=== PATIENT | male | born 2000 | race Caucasian/White ===

== ENCOUNTER 2022-06-26 17:19 | Observation (INO) ==
[2022-06-26] MEDS ORDERED: SODIUM CHLORIDE 0.9% 1000ML 1,000 ML IV STA (17:35)
--- NOTE | 2022-06-26 17:35 | ED Triage Note ---
Date of Service June 26, 2022 History of Present Illness This patient was briefly evaluated while in triage. An abbreviated physical exam was performed. This patient is a 21-year-old Male with no significant past medical history who presents to the ED for evaluation of abdominal discomfort that started last night. Awoke this morning, discomfort intensified and associated with nausea and "sharp pains everywhere." I was walking to the store and I was having sharp pains on my right side and my lower right side. Pt. called [facility] and referred for rule out of appendicitis. Physical Exam VITALS: Vitals are noted on the nurse's note and reviewed by myself. GENERAL: This is a 21 year old male, in no acute distress, nondiaphoretic, well- developed well-nourished. SKIN: No obvious rashes, edema, erythema HEAD: Normocephalic atraumatic. EYES: Conjunctivae without injection, sclerae without icterus. NECK: No JVD. LUNGS: No retractions or accessory muscle use. MUSCULOSKELETAL: Normal gait. NEURO: Patient was alert and oriented to person place and time. No focal neurological deficits. Initial orders for labs and / or imaging were placed and patient was placed in the waiting area until a bed is available. Please see further documentation for the full ED course. MDM / Impression Impression Impression: Acute appendicitis : Acute appendicitis Qualifiers: Acute appendicitis type: with localized peritonitis Appendicitis gangrene presence: without gangrene Appendicitis perforation presence: without perforation Appendicitis abscess presence: without abscess Qualified Code(s): K35.30 - Acute appendicitis with localized peritonitis, without perforation or gangrene
[2022-06-26 19:05] LABS: Basophils # (auto) 0.06 K/uL (0-0.2); Basophils % (auto) 0.4 %; Eosinophils % (auto) 0.7 %; Hematocrit (blood only) 44.6 % (40.1-51.0); Hemoglobin 15.7 g/dl (14.0-18.0); Immature Granulocytes # (auto) 0.05 K/uL (0.00-0.02); Immature Granulocytes % (auto) 0.3 %; Lymphocytes # (auto) 2.18 K/uL (1.2-3.4); Mean Corpuscular Hemoglobin 28.5 pg (25.0-34.0); Mean Corpuscular Hgb Conc 35.2 g/dL (32.0-36.0); Mean Corpuscular Volume 80.9 fL (80.0-100.0); Mean Platelet Volume 9.6 fL (9.4-12.4); Monocytes # (auto) 0.89 K/uL (0.24-0.82); Monocytes % (auto) 6.1 %; Neutrophils # (auto) 11.22 K/uL (1.4-6.5); Neutrophils % (auto) 77.5 %; Platelet Count 327 K/uL (130-400); RDW Coefficient of Variation 12.1 % (11.5-14.5); RDW Standard Deviation 35.8 fL (36.4-46.3); Red Blood Count 5.51 M/uL (4.63-6.08)
[2022-06-26 19:24] LABS: Alanine Aminotransferase 12 U/L (7-52); Albumin Globulin Ratio 2.2 (0.9-2); Albumin Level 4.9 gm/dl (3.4-5.0); Alkaline Phosphatase 67 U/L (34-104); Anion Gap 6 (3-11); Aspartate Aminotransferase 12 U/L (13-39); BUN Creatinine Ratio 14.9 (10-20); Bilirubin,Total 1.9 mg/dl (0.2-1.0); Blood Urea Nitrogen 11 mg/dl (6-23); Calcium 10.2 mg/dl (8.5-10.1); Carbon Dioxide 29 mmol/L (21-32); Chloride 103 mmol/L (98-107); Creatinine Clr Calc Pharmacy 155.3 ml/min; Est GFR (African American) > 150.0 ml/min; Est GFR (Non-African American) 133.7 ml/min; Globulin 2.2 gm/dl (2.5-4.0); Glucose 112 mg/dl (70-99(Fasting)); Lipase 18 U/L (11-82); Potassium 3.9 mmol/L (3.5-5.1); Sodium 138 mmol/L (136-145); Total Protein 7.1 gm/dl (6.0-8.3)
--- NOTE | 2022-06-26 19:51 | Emergency Department Note ---
Impression & Plan Acute appendicitis ED Provider Note NAME: ANJEL HALL AGE: 21 SEX: M : 2000 ARRIVES VIA: Walk-In INFORMANT: Patient, ED PROVIDER(S): Tian Rowan MD Chief Complaint: Abdominal pain HPI: Patient presents due to concern for abdominal pain. The patient states that he initially had some discomfort last evening but did not think much of it. The patient states that he woke this morning he did have some right upper and right lower abdominal pain. Patient thought that he would go to the local store and get some tea but did not take anything else for it. The patient states that his pain does feel improved compared to prior. The patient does have his appendix. Patient denies any dysuria or hematuria. No chest pains or shortness of breath. The patient did have some nausea earlier today but no vomiting. No current nausea. Patient denies any alcohol tobacco or drug use. The patient had called his mother suggested he call S and upon doing so [facility] [place] referred him here for further evaluation and treatment for rule out of appendicitis. ROS: See HPI for pertinent positives and negatives. A total of 10 systems were reviewed and otherwise negative. Past medical history: See below Surgical history: See below Social history: See below Physical Exam: GENERAL: NAD, wearing a mask, non-toxic. EYE EXAM: Normal conjunctiva. PERRL, no anisocoria and EOM's grossly intact w/o pain. NECK: Supple, no nuchal rigidity, no adenopathy, non-tender. No signs of meningismus. FROM of the neck with good chin to chest and neck extension. No stridor. LUNGS: Clear to auscultation. Normal chest wall mechanics. HEART: NSR, no MRG. ABDOMEN: Abdomen soft, non-tender, normo-active bowel sounds, no masses, no rebound or guarding. BACK: No CVA TTP. SKIN: No rashes and no bruising. UPPER EXTREMITIES: Upper extremities are grossly normal. LOWER EXTREMITIES: Grossly normal, no edema. NEURO EXAM: A&O x3, cranial nerves II-XII grossly intact, normal speech, moves all 4 extremities. Differential diagnoses: Appendicitis, testicular torsion, infections, diverticulitis, UTI, obstruction, mesenteric ischemia, aortic pathology, inflammatory bowel disease, renal colic, PUD, pancreatitis, biliary pathology, hernia, volvulus, constipation, as well as other pathologies. Course: Patient was seen and evaluated the bedside. Full history physical exam was performed. Imaging Studies: CT abdomen pelvis with IV and oral contrast Acute appendicitis Cardiac monitoring: An order was placed for continuous cardiac monitoring. The monitor shows a rate of 92 with sinus rhythm. MDM: Patient presents due to concern for abdominal pain. Blood work was obtained along with a CT of the abdomen pelvis. The patient currently denies any pain on exam at the bedside. She does have a white count of 14 with a normal H&H. Platelet count is unremarkable. Kidney function unremarkable. Mild elevation in bilirubin at 1.9. The patient has no right upper quadrant pain. Patient did receive IV fluids. Lipase is normal. Urinalysis without signs of blood or infection. CT abdomen pelvis does show concern for acute appendicitis. Cefoxitin was ordered in addition to COVID swab. I did speak the on-call g eneral surgeon Dr. Gautam and the patient was taken to the OR. Past Med/Surg History Medical History No pertinent past medical history Surgical History No pertinent past surgical history Social History Smoking Status: Never smoker Preferred Language: Chinese Feels Safe at Home: Yes Results & Data (ED) Vital Signs Vital Signs - 24 hr 06/26/22 17:34 06/26/22 19:43 06/26/22 19:43 Temperature 37.6 C H Temperature Source Oral Pulse Rate 117 H 94 H Pulse Rate [Finger] 86 Respiratory Rate 16 20 Respiratory Effort / Characteristics Respiratory Depth Blood Pressure 130/82 Blood Pressure [Left Arm] 129/78 Blood Pressure Mean 98 Blood Pressure Mean [Left Arm] 95 Blood Pressure Position [Left Arm] Pulse Oximetry 98 99 99 Oxygen Delivery Method Room Air Room Air Sepsis Recent Fever Within 48 Hours No Sepsis New/Unexplained Change in Mental Status N/A Sepsis Action Taken by Nursing No Action Required 06/26/22 21:14 06/26/22 23:09 Temperature Temperature Source Pulse Rate Pulse Rate [Finger] 77 96 H Respiratory Rate 18 20 Respiratory Effort / Characteristics Non-Labored Spontaneous Respiratory Depth Normal Blood Pressure Blood Pressure [Left Arm] 125/84 Blood Pressure Mean Blood Pressure Mean [Left Arm] 97 Blood Pressure Position [Left Arm] Sitting Pulse Oximetry 98 99 Oxygen Delivery Method Room Air Room Air Sepsis Recent Fever Within 48 Hours Sepsis New/Unexplained Change in Mental Status Sepsis Action Taken by Assisted Medications Current Medication List: was personally reviewed by me Laboratory Data Attestation: I reviewed the patient's lab results. Result diagrams: 06/26/22 18:38 06/26/22 18:38 Lab Results 06/26/22 06/26/22 06/26/22 Range/Units 18:38 18:38 20:59 WBC 14.50 H (4.8-10.8) K/ul RBC 5.51 (4.63-6.08) M/uL Hgb 15.7 (14.0-18.0) g/dl Hct 44.6 (40.1-51.0) % MCV 80.9 (80.0-100.0) fL MCH 28.5 (25.0-34.0) pg MCHC 35.2 (32.0-36.0) g/dL RDW Std Deviation 35.8 L (36.4-46.3) fL RDW Coeff of Raymond 12.1 (11.5-14.5) % Plt Count 327 (130-400) K/uL MPV 9.6 (9.4-12.4) fL Immature Gran % (Auto) 0.3 % Neut % (Auto) 77.5 % Lymph % (Auto) 15.0 % Terrell % (Auto) 6.1 % Eos % (Auto) 0.7 % Baso % (Auto) 0.4 % Neut # (Auto) 11.22 H (1.4-6.5) K/uL Lymph # (Auto) 2.18 (1.2-3.4) K/uL [place]rell # (Auto) 0.89 H (0.24-0.82) K/uL Eos # (Auto) 0.10 (0-0.50) K/uL Baso # (Auto) 0.06 (0-0.2) K/uL Immature Gran # (Auto) 0.05 H (0.00-0.02) K/uL Sodium 138 (136-145) mmol/L Potassium 3.9 (3.5-5.1) mmol/L Chloride 103 (98-107) mmol/L Carbon Dioxide 29 (21-32) mmol/L Anion Gap 6 (3-11) BUN 11 (6-23) mg/dl Creatinine 0.74 (0.6-1.4) mg/dl Est Cr Clr Drug Dosing 155.3 ml/min Est GFR ( Amer) > 150.0 ml/min Est GFR (Non-Af Amer) 133.7 ml/min BUN/Creatinine Ratio 14.9 (10-20) Glucose 112 H (70-99(Fasting)) mg/dl Calcium 10.2 H (8.5-10.1) mg/dl Total Bilirubin 1.9 H (0.2-1.0) mg/dl AST 12 L (13-39) U/L ALT 12 (7-52) U/L Alkaline Phosphatase 67 (34-104) U/L Total Protein 7.1 (6.0-8.3) gm/dl Albumin 4.9 (3.4-5.0) gm/dl Globulin 2.2 L (2.5-4.0) gm/dl Albumin/Globulin Ratio 2.2 H (0.9-2) Lipase 18 (11-82) U/L Urine Color Yellow Urine Appearance Clear (Clear) Urine pH 7.0 (4.5-7.5) Ur Specific [place] 1.006 (1.000-1.030) Urine Protein Negative (Negative) Urine Glucose (UA) Negative (Negative) Urine Ketones Negative (Negative) Urine Blood Negative (Negative) Urine Nitrite Negative (Negative) Urine Bilirubin Negative (Negative) Urine Urobilinogen Negative (Negative) Ur Leukocyte Esterase Negative (Negative) SARS-CoV-2, RNA, NAAT (NEGATIVE) 06/26/22 Range/Units 23:05 WBC (4.8-10.8) K/ul RBC (4.63-6.08) M/uL Hgb (14.0-18.0) g/dl Hct (40.1-51.0) % MCV (80.0-100.0) fL MCH (25.0-34.0) pg MCHC (32.0-36.0) g/dL RDW Std Deviation (36.4-46.3) fL RDW Coeff of Raymond (11.5-14.5) % Plt Count (130-400) K/uL MPV (9.4-12.4) fL Immature Gran % (Auto) % Neut % (Auto) % Lymph % (Auto) % Terrell % (Auto) % Eos % (Auto) % Baso % (Auto) % Neut # (Auto) (1.4-6.5) K/uL Lymph # (Auto) (1.2-3.4) K/uL [place] # (Auto) (0.24-0.82) K/uL Eos # (Auto) (0-0.50) K/uL Baso # (Auto) (0-0.2) K/uL Immature Gran # (Auto) (0.00-0.02) K/uL Sodium (136-145) mmol/L Potassium (3.5-5.1) mmol/L Chloride (98-107) mmol/L Carbon Dioxide (21-32) mmol/L Anion Gap (3-11) BUN (6-23) mg/dl Creatinine (0.6-1.4) mg/dl Est Cr Clr Drug Dosing ml/min Est GFR ( Amer) ml/min Est GFR (Non-Af Amer) ml/min BUN/Creatinine Ratio (10-20) Glucose (70-99(Fasting)) mg/dl Calcium (8.5-10.1) mg/dl Total Bilirubin (0.2-1.0) mg/dl AST (13-39) U/L ALT (7-52) U/L Alkaline Phosphatase (34-104) U/L Total Protein (6.0-8.3) gm/dl Albumin (3.4-5.0) gm/dl Globulin (2.5-4.0) gm/dl Albumin/Globulin Ratio (0.9-2) Lipase (11-82) U/L Urine Color Urine Appearance (Clear) Urine pH (4.5-7.5) Ur Specific [place] (1.000-1.030) Urine Protein (Negative) Urine Glucose (UA) (Negative) Urine Ketones (Negative) Urine Blood (Negative) Urine Nitrite (Negative) Urine Bilirubin (Negative) Urine Urobilinogen (Negative) Ur Leukocyte Esterase (Negative) SARS-CoV-2, RNA, NAAT NEGATIVE (NEGATIVE) Administered Medications Discontinued Medications Sodium Chloride (Nss 1000ml) 1,000 mls @ 999 mls/hr IV .Q1H1M STA Stop: 06/26/22 18:35 Last Infusion: 06/26/22 21:15 Dose: 0 mls/hr Documented By: JUAN DIEGO Admin: 06/26/22 19:41 Dose: 999 mls/hr Documented By: JUAN DIEGO Cefoxitin Sodium (Mefoxin) 2,000 mg in 60 mls @ 100 mls/hr IV NOW STA Stop: 06/26/22 23:31 Last Infusion: 06/26/22 23:42 Dose: 0 mls/hr Documented By: JUAN DIEGO Admin: 06/26/22 23:08 Dose: 100 mls/hr Documented By: JUAN DIEGO Ioversol (Optiray 350 100ml) 84 ml IV ONCE ONE Stop: 06/26/22 21:51 Last Admin: 06/26/22 21:50 Dose: 84 ml Documented By: REY Discharge Plan Visit Data Chief Complaint: GI Assessment Stated Complaint: APPENDICITIS,ABDOMINAL PAIN, SHARP PAINS RIB ED Provider: Tian Rowan Discharge Problem: Acute appendicitis Forms Stand Alone Forms: [facility] Referrals Referrals: PCP,NO [Physician] -
[2022-06-26 21:24] LABS: Appearance Urine Clear (Clear); Bilirubin Urine Negative (Negative); Blood Urine Negative (Negative); Color Urine Yellow; Glucose Urine UA Negative (Negative); Ketones Urine Negative (Negative); Leukocyte Esterase Urine Negative (Negative); Nitrite Urine Negative (Negative); Protein Urine Negative (Negative); Specific Gravity Urine 1.006 (1.000-1.030); Urobilinogen Urine Negative (Negative)
[2022-06-26] MEDS ORDERED: OPTIRAY 350 100ml IV ONE (21:50)
[2022-06-26] MEDS ORDERED: cefOXitin 2,000 MG/60 ML BAG IV STA (22:56)
--- NOTE | 2022-06-27 00:18 | History & Physical Report ---
Date of Service June 27, 2022 Assessment & Plan (1) Acute appendicitis: Plan 21-year-old gentleman presents with acute appendicitis. He was receiving cefoxitin in the emergency department. I discussed with him the risks and benefits of a laparoscopic appendectomy. We discussed the postoperative recovery and restrictions. All his questions were answered, he is agreeable to proceed. We will take him to the operating room at the earliest convenience for laparoscopic appendectomy. History of Present Illness Primary Care Provider: [facility] 21-year-old gentleman presents to the emergency department after a 1 day history of 21-year-old gentleman presents to the emergency department with a 1 day history of diffuse abdominal pain that is localized down to the right lower quadrant. He denies nausea and vomiting. He denies chest pain or shortness of breath. Denies fevers or chills. CT scan demonstrates acute appendicitis with appendicolith. White blood cell count is 14. Past Med/Surg History Medical History No pertinent past medical history Surgical History No pertinent past surgical history Social History Smoking Status: Never smoker Preferred Language: Scottish Feels Safe at Home: Yes Review of Systems Review of Systems: All systems reviewed & are unremarkable except as noted in HPI & below Physical Exam Constitutional: WD/WN, vitals as above Eyes: PERRL, conjunctivae normal, anicteric sclerae Neck: trachea midline, no thyromegaly Respiratory: normal respiratory effort; no respiratory distress and no labored breathing Cardiovascular: Rate/Rhythm: regular rate and regular rhythm Gastrointestinal (Abdomen): Inspection/Auscultation: abdomen normal to inspection; abdomen not distended Percussion/Palpation: abdomen soft; abdomen nontender, no guarding and abdomen not rigid Musculoskeletal: Extremities: no cyanosis and no clubbing Skin: no rashes, warm and dry Psychiatric: A+Ox3, euthymic affect Results & Data Results & Data ([facility]) Vital Signs (Past 12 Hours) Vital Signs Temp Pulse Pulse Resp BP BP Pulse Ox 06/26/22 23:09 96 H 20 125/84 99 06/26/22 21:14 77 18 98 06/26/22 19:43 94 H 99 06/26/22 19:43 86 20 129/78 99 06/26/22 17:34 37.6 C H 117 H 16 130/82 98 O2 Del Method 06/26/22 23:09 Room Air 06/26/22 21:14 Room Air 06/26/22 19:43 Room Air 06/26/22 19:43 06/26/22 17:34 Room Air Laboratory Results 06/26/22 06/26/22 06/26/22 Range/Units 23:05 20:59 18:38 WBC (4.8-10.8) K/ul RBC (4.63-6.08) M/uL Hgb (14.0-18.0) g/dl Hct (40.1-51.0) % MCV (80.0-100.0) fL MCH (25.0-34.0) pg MCHC (32.0-36.0) g/dL RDW Std Deviation (36.4-46.3) fL RDW Coeff of Raymond (11.5-14.5) % Plt Count (130-400) K/uL MPV (9.4-12.4) fL Immature Gran % (Auto) % Neut % (Auto) % Lymph % (Auto) % [place] % (Auto) % Eos % (Auto) % Baso % (Auto) % Neut # (Auto) (1.4-6.5) K/uL Lymph # (Auto) (1.2-3.4) K/uL [place] # (Auto) (0.24-0.82) K/uL Eos # (Auto) (0-0.50) K/uL Baso # (Auto) (0-0.2) K/uL Immature Gran # (Auto) (0.00-0.02) K/uL Sodium 138 (136-145) mmol/L Potassium 3.9 (3.5-5.1) mmol/L Chloride 103 (98-107) mmol/L Carbon Dioxide 29 (21-32) mmol/L Anion Gap 6 (3-11) BUN 11 (6-23) mg/dl Creatinine 0.74 (0.6-1.4) mg/dl Est Cr Clr Drug Dosing 155.3 ml/min Est GFR ( Amer) > 150.0 ml/min Est GFR (Non-Af Amer) 133.7 ml/min BUN/Creatinine Ratio 14.9 (10-20) Glucose 112 H (70-99(Fasting)) mg/dl Calcium 10.2 H (8.5-10.1) mg/dl Total Bilirubin 1.9 H (0.2-1.0) mg/dl AST 12 L (13-39) U/L ALT 12 (7-52) U/L Alkaline Phosphatase 67 (34-104) U/L Total Protein 7.1 (6.0-8.3) gm/dl Albumin 4.9 (3.4-5.0) gm/dl Globulin 2.2 L (2.5-4.0) gm/dl Albumin/Globulin Ratio 2.2 H (0.9-2) Lipase 18 (11-82) U/L Urine Color Yellow Urine Appearance Clear (Clear) Urine pH 7.0 (4.5-7.5) Ur Specific [place] 1.006 (1.000-1.030) Urine Protein Negative (Negative) Urine Glucose (UA) Negative (Negative) Urine Ketones Negative (Negative) Urine Blood Negative (Negative) Urine Nitrite Negative (Negative) Urine Bilirubin Negative (Negative) Urine Urobilinogen Negative (Negative) Ur Leukocyte Esterase Negative (Negative) SARS-CoV-2, RNA, NAAT NEGATIVE (NEGATIVE) 06/26/22 Range/Units 18:38 WBC 14.50 H (4.8-10.8) K/ul RBC 5.51 (4.63-6.08) M/uL Hgb 15.7 (14.0-18.0) g/dl Hct 44.6 (40.1-51.0) % MCV 80.9 (80.0-100.0) fL MCH 28.5 (25.0-34.0) pg MCHC 35.2 (32.0-36.0) g/dL RDW Std Deviation 35.8 L (36.4-46.3) fL RDW Coeff of Raymond 12.1 (11.5-14.5) % Plt Count 327 (130-400) K/uL MPV 9.6 (9.4-12.4) fL Immature Gran % (Auto) 0.3 % Neut % (Auto) 77.5 % Lymph % (Auto) 15.0 % Dick[place] % (Auto) 6.1 % Eos % (Auto) 0.7 % Baso % (Auto) 0.4 % Neut # (Auto) 11.22 H (1.4-6.5) K/uL Lymph # (Auto) 2.18 (1.2-3.4) K/uL [place] # (Auto) 0.89 H (0.24-0.82) K/uL Eos # (Auto) 0.10 (0-0.50) K/uL Baso # (Auto) 0.06 (0-0.2) K/uL Immature Gran # (Auto) 0.05 H (0.00-0.02) K/uL Sodium (136-145) mmol/L Potassium (3.5-5.1) mmol/L Chloride (98-107) mmol/L Carbon Dioxide (21-32) mmol/L Anion Gap (3-11) BUN (6-23) mg/dl Creatinine (0.6-1.4) mg/dl Est Cr Clr Drug Dosing ml/min Est GFR ( Amer) ml/min Est GFR (Non-Af Amer) ml/min BUN/Creatinine Ratio (10-20) Glucose (70-99(Fasting)) mg/dl Calcium (8.5-10.1) mg/dl Total Bilirubin (0.2-1.0) mg/dl AST (13-39) U/L ALT (7-52) U/L Alkaline Phosphatase (34-104) U/L Total Protein (6.0-8.3) gm/dl Albumin (3.4-5.0) gm/dl Globulin (2.5-4.0) gm/dl Albumin/Globulin Ratio (0.9-2) Lipase (11-82) U/L Urine Color Urine Appearance (Clear) Urine pH (4.5-7.5) Ur Specific [place] (1.000-1.030) Urine Protein (Negative) Urine Glucose (UA) (Negative) Urine Ketones (Negative) Urine Blood (Negative) Urine Nitrite (Negative) Urine Bilirubin (Negative) Urine Urobilinogen (Negative) Ur Leukocyte Esterase (Negative) SARS-CoV-2, RNA, NAAT (NEGATIVE) (1) Acute appendicitis Acute appendicitis type: with localized peritonitis Appendicitis abscess presence: without abscess Appendicitis gangrene presence: without gangrene Appendicitis perforation presence: without perforation Qualified Code(s): K35.30 - Acute appendicitis with localized peritonitis, without perforation or gangrene
--- NOTE | 2022-06-27 00:46 | Anesthesiology Consultation ---
Date of Service June 27, 2022 Assessment & Plan (1) Encounter for pre-operative examination: Chart Review Chart Review: Acceptable Risk for Surgery and Patient NOT seen in Pre Admission Testing Consults Requested none History Surgery Operation Date: 06/27/22 01:00 Proposed Procedures p Laparoscopic Appendectomy - Kd Gautam MD Height/Weight Height: 5 ft 8 in Weight: 78.1 kg Past Medical History Medical History No pertinent past medical history Past Surgical History Surgical History No pertinent past surgical history Social History Smoking Status: Never smoker Physical Exam Vital Signs Last Vital Signs Temp 37.6 C H 06/26/22 17:34 Pulse 96 H 06/26/22 23:09 Resp 20 06/26/22 23:09 BP 125/84 06/26/22 23:09 Pulse Ox 99 06/26/22 23:09 O2 Del Method 06/26/22 23:09 Testing Laboratory Results 06/26/22 18:38 06/26/22 18:38 Urine Color Yellow 06/26/22 20:59 Urine Appearance Clear (Clear) 06/26/22 20:59 Urine pH 7.0 (4.5-7.5) 06/26/22 20:59 Ur Specific [place] 1.006 (1.000-1.030) 06/26/22 20:59 Urine Protein Negative (Negative) 06/26/22 20:59 Urine Glucose (UA) Negative (Negative) 06/26/22 20:59 Urine Ketones Negative (Negative) 06/26/22 20:59 Urine Nitrite Negative (Negative) 06/26/22 20:59 Ur Leukocyte Esterase Negative (Negative) 06/26/22 20:59
[2022-06-27] MEDS ORDERED: HYDROmorphone INJ 1 MG/ML SYRINGE IV PRN (00:50)
[2022-06-27] MEDS ORDERED: LABETALOL HCL IV 5 MG/ML 20ML IV PRN (00:50)
[2022-06-27] MEDS ORDERED: PHENYLEPHRINE 100MCG/ML 5ML SYR IV PRN (00:50)
[2022-06-27] MEDS ORDERED: MEPERIDINE HCL 25 MG/ML CARP/VIAL IV PRN (00:50)
[2022-06-27] MEDS ORDERED: fentaNYL citrate 100 MCG/2 ML VIAL IV PRN (00:50)
[2022-06-27] MEDS ORDERED: ePHEDrine sulfate 50 MG/ML AMP IV PRN (00:50)
[2022-06-27] MEDS ORDERED: ONDANSETRON INJ 2 MG/ML 2 ML VIAL IV PRN ×2 (00:50→03:05)
[2022-06-27] MEDS ORDERED: ATROPINE SULFATE 0.1 MG/ML 10ML SYR IV PRN (00:50)
[2022-06-27] MEDS ORDERED: MIDAZOLAM HCL 1 MG/ML 2ML VIAL ONE (00:52)
[2022-06-27] MEDS ORDERED: fentaNYL citrate 100 MCG/2 ML VIAL ONE ×2 (00:52→01:31)
[2022-06-27] MEDS ORDERED: DEXAMETHASONE SOD INJ 4 MG/ML VIAL ONE (00:57)
[2022-06-27] MEDS ORDERED: PROPOFOL IV EMULSION 10 MG/ML 20 ML VIAL IV ONE (00:57)
[2022-06-27] MEDS ORDERED: ONDANSETRON INJ 2 MG/ML 2 ML VIAL ONE (00:57)
[2022-06-27] MEDS ORDERED: SUCCINYLCHOLINE 100MG/5ML SYR IV ONE (00:57)
[2022-06-27] MEDS ORDERED: LIDOCAINE 2% MPF LOCAL 5 ML VIAL INFIL ONE (00:57)
[2022-06-27] MEDS ORDERED: BUPIVACAINE/EPINEPHRINE 0.25% 1:200,000 30 ML VIAL ONE (01:16)
[2022-06-27] MEDS ORDERED: ESMOLOL HCL INJ 10 MG/ML 10ML VIAL IV ONE (01:20)
[2022-06-27] MEDS ORDERED: KETOROLAC 30 MG/ML VIAL ONE (01:43)
[2022-06-27] MEDS ORDERED: NEOSTIGMINE METHYLSULFATE 1 MG/ML 10ML VIAL ONE (01:43)
[2022-06-27] MEDS ORDERED: GLYCOPYRROLATE 0.2 MG/ML VIAL ONE (01:43)
--- NOTE | 2022-06-27 01:57 | Operative Report ---
Post Operative Report Pre & Post Diagnosis Operation Date: 06/27/22 01:00 Pre-Op Diagnosis: Acute Appendicitis Post-Op Diagnosis: Acute Appendicitis I identified the patient and participated in the time-out.: Yes Procedure Operation Date: 06/27/22 01:00 Actual Procedures p Laparoscopic Appendectomy - Kd Gautam MD Surgeon Kd Gautam MD Physical Chemistry Teacher None Estimated Blood Loss 5 Findings Consistent with Post-Op Diagnosis Acute appendicitis Specimens Appendix Drains None Anesthesia Type General Complications No immediate complications Description of Procedure The patient was taken to the operating room, and placed supine on the operating table. A timeout was performed, perioperative antibiotics were administered, SCD boots were placed. After adequate anesthesia and analgesia was obtained, the abdomen was prepped and draped in the normal sterile fashion. A 1 cm incision was made in the supraumbilical region and carried down to the level of the fascia. A trach hook was used to grasp the fascia and elevated and a varies needle was used to enter the abdominal cavity. The abdomen was insufflated to a pressure of 15 mmHg, and a 5 mm trocar was placed in this loc ation. A 5 mm 30 degree laparoscope was placed into the abdominal cavity, and the abdomen was surveyed. The patient was placed in Trendelenburg and slightly to the left. One 5 mm trocar was placed in the right upper quadrant, and one 12 mm trocar was placed in the left lower quadrant under direct visualization. The right colon was identified and traced down to the cecum. The appendix was identified and elevated anteriorly and medially. A window was created at the base of the appendix with a [place] dissector. The Endo FRANCOIS stapler was used to transect the appendix at its base through no ninflamed tissue, and subsequently the mesoappendix. The appendix was placed in an Endo Catch bag, and removed via the left lower quadrant port site. Attention was turned to hemostasis, which was excellent. The abdomen was copiously irrigated and suctioned free, and again hemostasis was found to be excellent. All trochars removed under direct visualization. The abdomen was desufflated. The fascia in the 12 mm port site was closed with a 0 Vicryl suture. The skin was closed with a running 4-0 Monocryl subcuticular stitch. Dermabond was applied. The patient tolerated the procedure without complication, and was transferred in stable condition to the PACU. All instrument, needle, and sponge counts were correct at the end of the case. I attest to the content of the Intraoperative Record and any orders documented therein. Any exceptions are noted below.
--- NOTE | 2022-06-27 02:20 | Anesthesiology Progress Note ---
Date of Service June 27, 2022 Anesthesia Post Procedure Vital Signs Vital Signs: Temp Pulse Pulse Resp BP BP Pulse Ox 06/27/22 02:15 36.5 C 105 H 20 135/72 96 06/26/22 23:09 96 H 20 125/84 99 06/26/22 21:14 77 18 98 06/26/22 19:43 94 H 99 06/26/22 19:43 86 20 129/78 99 06/26/22 17:34 37.6 C H 117 H 16 130/82 98 O2 Del Method 06/27/22 02:15 Room Air 06/26/22 23:09 Room Air 06/26/22 21:14 Room Air 06/26/22 19:43 Room Air 06/26/22 19:43 06/26/22 17:34 Room Air Transfer of Care Handoff Completed per policy Notes Mental Status: alert / awake / arousable Patient Amnestic to Procedure: Yes Nausea / Vomiting: adequately controlled Pain: adequately controlled Airway Patency, RR, SpO2: stable & adequate BP & HR: stable & adequate Hydration State: stable & adequate Anesthetic Complications: no major complications apparent and Pt Satisfied with anesthetic care Notes: The patient is awake and comfortable in the PACU. His vial signs are stable.
[2022-06-27] MEDS ORDERED: oxyCODONE/ACETAMINOPHEN 5mg/325mg TAB PO PRN (03:05)
[2022-06-27] MEDS ORDERED: KETOROLAC 30 MG/ML VIAL IV PRN (03:05)
[2022-06-27] MEDS ORDERED: diphenhydrAMINE Capsule 25 MG CAP PO PRN (03:05)
[2022-06-27] MEDS ORDERED: MoRPHine SULFATE 2 MG/ML CARP IV PRN (03:05)
[2022-06-27] MEDS ORDERED: ENOXAPARIN INJ 40 MG/0.4 ML SYR SQ SCH (08:00)
--- NOTE | 2022-06-27 08:14 | CT Scan Report ---
ABDOMEN AND PELVIS CT WITH IV AND ORAL CONTRAST CT DOSE: 305.79 mGy.cm HISTORY: Acute right lower quadrant abdominal pain right sided abdominal pain TECHNIQUE: Multiaxial CT images of the abdomen and pelvis were performed following the IV administrat ion of Optiray and oral contrast. A dose lowering technique was utilized adhering to the principles of ALARA. COMPARISON STUDY: None. FINDINGS: The lung bases are clear. The liver, spleen, gallbladder, pancreas, kidneys, and adrenal gl ands are within normal limits. No bowel wall thickening or obstruction. The appendix is dilated and f luid-filled measuring up to 1.4 cm transversely with associated wall thickening and mucosal hyperemia . 7 mm proximal appendicolith. Periappendiceal inflammation without abscess identified. Mildly promin ent lymph nodes of the right lower quadrant mesentery are likely reactive. Moderate bladder wall thic kening with partial distention. No acute fracture. IMPRESSION: 1. Acute appendicitis with subcentimeter appendicolith. 2. No pneumoperitoneum or abscess. ACT 112: Negative or not required by law. The above report was generated using voice recognition software. It may contain grammatical, syntax o r spelling errors. Electronically signed by: Vic Meyer M.D. 06/27/2022 8:12 AM
[2022-06-27] MEDS ORDERED: ACETAMINOPHEN 325 MG TAB PO PRN (09:05)
--- NOTE | 2022-06-28 14:40 | Discharge Summary ---
Date of Service June 28, 2022 Admission HPI Per Admitting Provider 21-year-old gentleman presents to the emergency department after a 1 day history of 21-year-old gentleman presents to the emergency department with a 1 day history of diffuse abdominal pain that is localized down to the right lower quadrant. He denies nausea and vomiting. He denies chest pain or shortness of breath. Denies fevers or chills. CT scan demonstrates acute appendicitis with appendicolith. White blood cell count is 14. Principal Diagnosis Appendicitis Discharge Data Allergies Allergy/AdvReac Type Severity Reaction Status Date / Time Penicillins Allergy Intermediate Rash Verified 06/27/22 00:49 Consultations 06/26/22 22:58 ED Decision to Admit Stat Procedures Performed Operation Date: 06/27/22 01:00 Actual Procedures p Laparoscopic Appendectomy - Kd Gautam MD Ordered Studies 06/26/22 17:35 CT abd pelvis oral and IV con Urgent Hospital Course (1) Acute appendicitis: patient was admitted from the emergency department taken to the operating room for laparoscopic appendectomy, the details of which are dictated in a separate operative note. Postoperatively he was transferred in stable condition to PACU and subsequently to the floor. A DVT prophylaxis was maintained with SCD boots and Lovenox. Pain was controlled with IV and p.o. pain medications. He was encouraged to get out of bed and use incentive spirometer. His diet was slowly advanced. By the date of discharge, he was tolerating regular diet, not requiring any IV pain medications, was discharged home in stable condition. He will return to clinic for follow-up in 2 weeks. Total Time Total Time Spent Total Time Spent (In Minutes): 30 minutes Discharge Plan Discharge Items Patient Disposition: Home - Self-Care Reason For Visit: APPENDICITIS Discharge Diagnosis: appendicitis Activity: Per Instructions section Lifting: No more than 25 pounds Sexual Activity: Wait until after follow-up appointment Exercise/Sports: Wait until after follow-up appointment Non-emergency contact: Surgeon Call non-emergency contact if: you have any medication questions, your symptoms worsen, your pain is not controlled, your pain is worsening, your pain is unusual for you, your pain is concerning for you, your temperature is above 101.5, your wound has increased redness, your wound has increased drainage and your wound pain has increased Follow-up/Referrals: Kd Gautam MD [Physician] - 07/11/22 10:45 am PCP,NO [Physician] - Diet: Regular Addtl Attending Provider Instructions: Post-Surgical ~Discharge Instructions Activity Recommendations: - lifting limitation: (20 pounds for 2 weeks), - exercise/sex/sports limit: (nonstrenuous for 2 weeks), - driving or machine use limit: (none for 1 week), - Shower/bathe limit: (may shower beginning tomorrow) Diet: - Resume previous diet SPECIAL CARE INSTRUCTIONS: - May shower in 24 hours. Let water run over area and pat dry. - Leave Dermabond in place. - Call the surgeon's office with any questions or concerns - - (ex. temperature higher than 101 degrees F, excessive bleeding or pain). MEDICATIONS: - Resume previous medications unless instructed otherwise by your surgeon. - Ibuprofen 600 mg every 6 hours with food - Percocet 1 every 4 hours, as needed for pain FOLLOW UP VISIT: - If not already scheduled, please call the office to schedule a two week follow-up appointment. Office number Pending Studies at Discharge: No Stand-Alone Forms: My [facility] labs, Work/School Release Medications and DC Order Prescriptions: New oxycodone-acetaminophen [Percocet] 5-325 mg tablet 1 tab PO Q6H PRN (Reason: pain) Qty: 10 0RF oxycodone-acetaminophen [Percocet] 5-325 mg tablet 1 tab PO Q6H PRN (Reason: pain) Qty: 10 0RF Discharge Orders: Discharge Order (Routine); Ordered 06/27/22 Ordered By: Kd Patrick/Other Patient Handouts: Appendectomy Admission Data Admit Date/Time: 06/27/22 02:03 Attending Provider: Kd Gautam Admit Provider: Kd Gautam Primary Care Provider: [facility] Other Providers: Kd Gautam Other Interventions: Discharge Summary Assessment (RN) Last Done: 06/27/22 14:09
== END 2022-06-27 15:09 | disposition home or self-care (01) ==
LOC: ED 17:19 → OR 06-27 00:33 → 3N 06-27 00:33 → INTOOBSV 06-27 02:03